=== PATIENT | female | born 1935 | race Caucasian/White ===

== ENCOUNTER → 2019-01-23 | Outpatient (CLI) | payer MEDICARE, OTHER ==
--- NOTE | 2019-01-24 08:17 | XCELERA REPORT ---
[address] [address] Lower Extremity Arterial Evaluation Name: DEVANTE SMITH Age: 83 yrs Gender: Female : 1935 Patient Status: Outpatient Patient Location: [facility] Study Date: 01/23/2019 11:15 AM Procedure: A color flow and duplex scan of the lower extremity arteries was performed bilaterally with velocity and waveform anaylsis. Reason For Study: PVD Ordering Physician: JUAN DIEGO ESTEVES Performed By: Jayme Gonzalez Measurements and Calculations Right Left CNC SUPERVISOR PSV 150.1 115.7 cm/sec Prox PFA PSV -87.7 -118.2cm/sec Prox SFA PSV 185.2 106.9 cm/sec Mid SFA PSV -95.9 -111.3cm/sec Dist SFA PSV -104.2 -69.2 cm/sec Prox Pop A PSV 38.0 46.3 cm/sec Dist Pop A PSV -57.2 cm/sec Prox RIAN PSV 56.6 cm/sec Mid RIAN PSV 68.8 cm/sec Dist RIAN PSV 22.3 -10.2 cm/sec Mid COURT REPORTER PSV 47.5 cm/sec Dist COURT REPORTER PSV -18.2 73.7 cm/sec Jose G Pedis PSV -49.0 -89.9 cm/sec Right Side Arterial Evaluation Triphasic waveforms noted from the Common Femoral artery to the Popliteal. Biphasic in the distal infrageniculate vessels . Somewhat decreased velocity in the infrageniculate Reversal of flow noted in the Posterior Tibial artery. Ankle Brachial index 0.87. PPG's are monophasic, dampened. Left Side Arterial Evaluation Triphasic waveforms noted from the Common Femoral artery to the Posterior Tibial. Biphasic, with decreased velocity, little spectral broadening in the distal Anterior Tibial . Reversal of flow noted in the Anterior Tibial artery. Ankle Brachial index 1.06. PPG's are monophasic, dampened. Interpretation Summary Moderate hemodynamically significant lesions in the right lower extremity only, on duplex imaging, at rest. Mild hemodynamically significant lesions in the left lower extremity only, on duplex imaging, at rest. TU's indicate mild disease on right, No significant compromise on the left. PPG's are markedly abnormal. The findings on Duplex, TU;'s and PPG's are non concordant. Probably indicative of quite good collateral compensation from atherosclerosis effects focused in the infrageniculate vessels. Vascular evaluation may be of value to sort out the clinical significance of these unusual findings. : JUAN DIEGO ESTEVES > Lm Henriquez
== END ==
LOC: SP 11:53
PROVIDERS: ATTEND Podiatrist Foot Surgery
DX: I73.9 Peripheral vascular disease, unspecified (principal)
CPT/HCPCS: 93922; 93925

== ENCOUNTER → 2020-10-12 | Outpatient (CLI) | payer MEDICARE, OTHER ==
--- NOTE | 2020-10-12 09:43 | RADIOLOGY REPORT (SQ) ---
EXAM DESCRIPTION: COOKIE SWALLOW IMAGES COMPLETED DATE/TIME: 10/12/2020 9:05 am REASON FOR STUDY: DYSPHAGIA R13.10 DYSPHAGIA, UNSPECIFIED COMPARISON: None. TECHNIQUE: Videofluoroscopic swallowing examination was performed in conjunction with speech patholo gy. Videofluoroscopic imaging was obtained and reviewed and these are the findings: RADIATION DOSE: Fluoro time 3.3 minutes 1 images saved to PACS. LIMITATIONS: None FINDINGS: The patient was brought into the fluoro room and placed upright on a modified barium swall ow chair. The patient was then given multiple consistencies mixed with barium to swallow under live fluoroscopic video guidance. According to the Speech Pathologist there was laryngeal penetration see n with thin barium. No aspiration identified. All other consistencies were swallowed without incide nt. Please refer to the speech pathology report for further details. IMPRESSION: LARYNGEAL PENETRATION, WITHOUT ASPIRATION, SEEN WITH THIN BARIUM. PLEASE SEE SPEECH PATH OLOGIST REPORT FOR OTHER FINDINGS AND RECOMMENDATIONS. COMMENT: NONE Quality ID [id number]: Final reports for procedures using fluoroscopy that document radiation exposure sherita jimbo, or exposure time and number of fluorographic images (if radiation exposure indices are not avail able) TECHNICAL DOCUMENTATION: JOB ID: [id number] 2010 [employer]- All Rights Reserved Reading location - IP/workstation name: [email or web address] [id number]
--- NOTE | 2020-10-12 12:59 | ST Modified Barium Swallow ---
Recommendation - Recommendations Recommendations: Recommend patient keep outpatient appointment scheduled for this week. Moderate pharyngeal phase deficits observed resulting in residue with solids after the swallow. Due to patient's remote history of benign brain tumor and current functional changes to swallowing, may benefit from neurology consult. 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 York Risks/Precautions: Falls Date of Onset: 09/28/18 - approximate onset Reason for Referral: difficulty swallowing - History History obtained from: Patient - Patient arrived independently and acted as her own historian. Reports having some swallowing difficulties for approximately 2 years, characterized by coughing with liquids and globus with pills and solids. She reports "things get stuck here (pointing to mid-sternum)". -: Medical - Patient does have history of benign brain tumor in 1981 with surgical intervention. Patient has facial asymmetry of movement due to this, however, does not appear to be impacting function. Medications: per patient report: blood thinner, artovastatin, sulfame thox, lisinopril, synthroid, gabapentin, toprol, duloxedine Allergies: none reported - Functional Status Prior Functional Status: INDEPENDENT: feeding Current Functional Limitations: feeding - globus - Subjective Patient/caregiver goal(s): safe swallow, r/o struct. abnormality Cognitive-Linguistic Function: Functional Speech Intelligibility: WNL Current Nutritional Means: PO Current PO diet: Regular Current symptoms: Coughing, c/o Globus sensation Pain: Patient reports, 0/5 - Objective Assessment: Upright, Left Lateral - Food Trials Used Food trials used: Thin liquids, Pureed, Regular The patient: Was Able to Self Feed - Oral-Motor Skills Velo-pharyngeal function: Unremarkable Laryngeal Function: clear voicing Oral Motor Skills: Patient does have facial asymmetry due to previous surgery for brain tumor. Not impacting function. - Assessment Oral prep: Normal Labial closure: Adequate Leakage: None Mastication: Adequate Lingual Movement: Normal Oral stage: Normal for this Procedure - Pharyngeal Stage Initiation of Pharyngeal Stage Reflex: Normal Decreased laryngeal elevation: No Reduced Velopharyngeal Closure: no Reduced pressure generation: Yes reduced tongue-based retraction: No Pre-swallow pooling in valleculae: None Pre-Swallow pooling in pyriforms: None Reduced Thyro-Hyoid approximation: No Reduced epiglottic excursion: Yes - mild Reduced pharyngeal peristalsis/contraction: Yes - mild Multiple Swallows with: Cleared w/ Liquid Assist Post-swallow residulas vallecular: Moderate - with solids Post-Swallow residuals in pyriforms: Mild - with solids - Fall Risk Assessment Medications/Conditions that increase fall risks include: Antidepressants, sedatives, anti-arrhythmic, diuretic, benzodiazipenes, neuroleptics. BP regulation problems, cardiac problems, balance or gait deficits, neurological problems. Fall Risk Actions Taken: No action needed - Behavioral Observations During evaluation process patient: able to answer questions, provided medical history - Treatment / Educational Needs: Treatment/Education Needs: Treatment consisted of patient education on the role of the Speech Pathologist. Patient's plan of care and golas were communicated as well as scheduling and attendance policies. Recommendations for initial home program were shared. Patient demonstrated understanding and verbalized agreement. - Impression/Summary Laryngeal Penetration: Yes - with seqeuntial swallows on thin liquids via straw Tracheal Aspiration: no Patient presents with: Pharyngeal stage dysph. - moderate Risk of Aspiration: Mild Risk of nutritional compromise: None Evaluation and Findings: Patient does demonstrate moderate pharyngeal phase dysphagia, characterized by reduced pharyngeal constriction and epiglottic inversion, which results in residue in valleculae and pyriform sinus, primarily with solids but also trace amounts with liquids. Patient does have inconsistent sensation of residue, at times reporting she felt everything went down smoothly, however, fluoroscopy revealed significant valleculae residue. Residue did partially clear with dry swallow, more effectively cleared with liquid wash. Penetration of thin liquids was seen on sequential straw sips of thin liquids only, and does not appear to be a functional limitation. - Recommendations Solid diet recommendations: Regular Liquid Diet Modification: Thin Dysphagia therapy with CONTACT CENTER ASSISTANT: f/u with current thera. Recommended techniques: Fully Upright During Meal, Small Bites and Sips, Alternate Bites/Sips Information, Precautions and Recommendations: Patient (Written), Patient (Verbal) Other recommendations: Patient may benefit from neurology consult due to history of brain tumor and current functional changes to swallow. - Time Total Time: 30 - Plan of Care Strategies to optimize patient understanding include:: ongoing assessment of educational needs, implementation of educational strategies, and re-education. - - -: Thank you for the opportunity to work with this patient and his/her family. Should you have any questions about this patient's plan or progress, I can be reached at [phone].
== END ==
LOC: RAD 08:12
PROVIDERS: ATTEND Internal Medicine Gastroenterology
DX: R13.10 Dysphagia, unspecified (principal)
CPT/HCPCS: 74230